=== PATIENT | female | born 1965 | race Caucasian/White ===

== ENCOUNTER → 2016-12-05 | Outpatient (CLI) | payer BC | LOC: MMGSC 16:50 | PROVIDERS: ATTEND Family Medicine | DX: N39.0 Urinary tract infection, site not specified (principal) | CPT/HCPCS: 87077; 87086; 87186 ==

== ENCOUNTER → 2017-03-07 | Outpatient (CLI) | payer BC | LOC: MMGSC 15:06 | PROVIDERS: ATTEND Family Medicine | DX: N39.0 Urinary tract infection, site not specified (principal) | CPT/HCPCS: 87086 ==

== ENCOUNTER → 2017-09-17 | Outpatient (CLI) | payer BC | END | disposition home or self-care (01) | LOC: MMGSC 14:37 | PROVIDERS: ATTEND Family Medicine | DX: N39.0 Urinary tract infection, site not specified (principal) | CPT/HCPCS: 87086 ==

== ENCOUNTER → 2017-10-04 | Outpatient (CLI) | payer BC ==
[2017-10-04 19:26] LABS: ALT 26 U/L (9-52); AST 27 U/L (14-36); Albumin 4.6 g/dL (3.5-5.0); Alkaline Phosphatase 52 U/L (38-126); Anion Gap 11 mmol/L; Blood Urea Nitrogen 8 mg/dL (7-17); Calcium 9.5 mg/dL (8.4-10.2); Carbon Dioxide 28 mmol/L (22-30); Chloride 102 mmol/L (98-107); Cholesterol 140 mg/dL (<200); Glucose 92 mg/dL (74-99); HDL Cholesterol 60 mg/dL (40-60); LDL Cholesterol,Calculated 69 mg/dL (0-99); Potassium 4.3 mmol/L (3.5-5.1); Sodium 141 mmol/L (137-145); Total Bilirubin 0.4 mg/dL (0.2-1.3); Total Protein 7.3 g/dL (6.3-8.2); Triglycerides 55 mg/dL (<150)
[2017-10-04 19:33] LABS: HCT 36.6 % (34.0-46.0); HGB 12.8 gm/dL (11.4-16.0); MCH 32.8 pg (25.0-35.0); MCV 93.8 fL (80.0-100.0); Platelet Count 134 k/uL (150-450); RDW 12.4 % (11.5-15.5); WBC 3.1 k/uL (3.8-10.6)
[2017-10-04 19:38] LABS: T4, Free (Free Thyroxine) 1.06 ng/dL (0.78-2.19)
[2017-10-04 20:46] LABS: Lymphocytes # (M) 1.24 k/uL (1.0-4.8); Monocytes # (M) 0.59 k/uL (0-1.0); Neutrophils # (M) 1.27 k/uL (1.3-7.7); Neutrophils % (M) 41 %; Nucleated Red Blood Cells 0 /100 WBC (0-0); Polychromasia Present; Total Cells Counted 100
== END | disposition home or self-care (01) ==
LOC: MMGSC 11:41
PROVIDERS: ATTEND Family Medicine
DX: Z00.00 Encounter for general adult medical examination without abnormal findings (principal)
CPT/HCPCS: 36415; 80053; 80061; 84439; 84443; 85025

== ENCOUNTER → 2022-04-27 | Outpatient (CLI) | payer BC ==
--- NOTE | 2022-04-27 16:43 | P.SLEEP ---
History of Present Illness DATE: 04/27/2022 CONSULTATION/NEW PATIENT EVALUATION HISTORY OF PRESENT ILLNESS/SLEEP-WAKE EVALUATION: 56year old lady had been evaluated in the sleep center for possible obstructive sleep apnea hypopnea syndrome. SLEEP SCHEDULE: Usually sleep schedule on weekdays from 9 PM to 5 AM, during days off from 9 PM to 7 AM. FALLING ASLEEP: No problems with falling asleep, no TV in bedroom. DURING SLEEP: Patient usually sleeps on the side and back position, with snoring and awakenings from sleep 3 times. Positive history of bradycardia during the sleep by Holter monitor. No history of hypnogogical hallucinations, sleep paralysis, or cataplexy. DURING THE DAY/WAKE STATE: Patient may feel sleepiness during the day. [place] sleepiness scale is. 7.. Patient take naps at 1 PM. 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 MEDICATIONS: Gabapentin 300 mg 4 times a day, pantoprazole 40 mg once a day, trazodone 25 mg once a day in the evening, Xanax 0.25 mg as needed, eyedrops. SOCIAL HISTORY: , Negative for smoking, alcohol consumption occasional. FAMILY HISTORY: Cancer, thyroid problems, diabetes. REVIEW OF SYSTEMS: Right-sided weakness, bradycardia, neck pain. No fevers. No double vision. No recent chest pain. No shortness of breath. No abdominal pain. No bleeding episodes. No blood in urine. No seizure episodes. PHYSICAL EXAMINATION: GENERAL: A pleasant patient without any distress. VITAL SIGNS: BP, 137/69 , HR , 42 , RR 16 , weight, 124.0 pounds, height 5 foot 5-1/3 inches, body mass index 20.4 . HEENT: PERRLA, EOMI. Evaluation of oropharynx showed tongue protrudes midline, low position of soft palate Mallampati 3. Retrognatia about 4 mm. Small symmetric mandibula. NECK: Supple. No JVD. Thyroid is not palpable. 12 from the half inches in circumference. LUNGS: Clear to percussion and to auscultation. Good air exchange. No wheezing or rhonchi. HEART: S1, S2 regular. No murmurs, gallops or rubs. ABDOMEN: Soft and nontender. Bowel sounds are present. No organomegaly appreciated. EXTREMITIES: No clubbing or cyanosis. CEMENT MIXER: Awake, alert, and oriented x3. Right-sided weakness. Patient walking with cane. ASSESSMENT: 1. Snoring, multiple awakenings from sleep, low position of soft palate Mallampati 3, retrognathia 4 mm, small assymmetric mandibula. Possible obstructive sleep apnea hypopnea syndrome. 2. Bradycardia during the sleep by Holter monitor. 3 . Degenerative disc disease. 4. , History of brain stem stroke at age of 38 with residual right-sided weakness. 5 . History of iron deficiency anemia. 6. , History of sinusitis problems. 7. , Acid reflux. 8. , Status post partial hysterectomy. 9. , Status post glomus tumor removed. 10. Vertigo episodes. 11.. Glaucoma. PLAN: 1. Polysomnography for evaluation of patient's breathing during sleep. 2. CPAP/BiPAP titration if sleep study confirms obstructive sleep apnea- hypopnea syndrome. 3. Preferable position during sleep on the side. 4. No driving if patient feels any sleepiness. Patient is aware of civil and criminal liability for unsafe driving. 5. Sleep hygiene with regular sleep time for at least 7.5-8 hours. Thank you very much for referring this patient for consultation. Sincerely, Josiah Cline MD, PhD, FAASM. Diplomat of [place] Board [employer] Medicine, Sleep Medicine Board by [place] [employer] Special[employer] [place] [employer] of [employer] Medicine [employer]ormitory Ma[employer] [facility] [place] Sleep Note - Sleep Note Sleep Note: Temperature: Pulse Rate: Respiratory Rate: Blood Pressure: SpO2: Height: Weight: BMI: Neck Circumference:
== END ==
LOC: SLEEP 15:22
PROVIDERS: ATTEND Internal Medicine
DX: R06.83 Snoring (principal); K21.9 Gastro-esophageal reflux disease without esophagitis; M26.19 Other specified anomalies of jaw-cranial base relationship; R00.1 Bradycardia, unspecified; D50.9 Iron deficiency anemia, unspecified; H40.9 Unspecified glaucoma; J32.9 Chronic sinusitis, unspecified; Z90.710 Acquired absence of both cervix and uterus; Z86.73 Personal history of transient ischemic attack (TIA), and cerebral infarction without residual deficits
CPT/HCPCS: 99211

== ENCOUNTER → 2024-07-30 | Outpatient (CLI) | payer OTHER ==
[2024-07-30 14:18] VITALS: BP 160/80; PULSE 94; RESP 16; TEMP 97.7
--- NOTE | 2024-07-30 14:49 | P.PROGSL ---
Subjective DATE: 07/30/2024 FOLLOW UP VISIT. 58-year-old lady have been followed in the sleep center. I saw patient in 2021, at that time she had polysomnogram which showed obstructive sleep apnea hypopnea syndrome in mild range with apnea hypopnea index 9.7. At that time because of insurance issues patient was not able to proceed with the treatment. Patient continued to snore, has multiple awakenings from sleep, may feel some tiredness during the day. [place] sleepiness scale is 6. MEDICATIONS: Please see below During physical exam: GENERAL: A pleasant patient without any distress. VITAL SIGNS: BP 160/80, weight 129 pounds, BMI 21.0, otherwise please see below. HEENT: CHILANGO HEIN. NECK: Supple. No JVD. LUNGS: Clear to percussion and to auscultation. Good air exchange. No wheezing or rhonchi. HEART: S1, S2 regular. ABDOMEN: Soft and nontender. EXTREMITIES: No clubbing or cyanosis. 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 Right-sided weakness. Impressions: 1. Snoring, awakenings from sleep, low position of soft with Mallampati 3, retrognathia. Obstructive sleep apnea hypopnea syndrome 2. History of brainstem stroke at the age of 38 with residual right-sided weakness. 3. Hypertension in the office. 4. Acid reflux. 5. Glaucoma. 6. 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 7. History of vertigo. 8. Status post tonsillectomy. 9. Status post hysterectomy. Plan: 1. Polysomnogram for evaluation of patient breathing during the sleep 2. Sleep hygiene with regular time in bed for at least 8 hours. 3. No driving if feeling sleepiness. Patient is aware about civil and criminal liability for unsafe driving. 4. Low-sodium diet, monitoring blood pressure. 5. Following plan after reading sleep study. Thank you very much for allowing me to participate in the management of your patient. Josiah Cline MD, PhD, FAASM. Diplomat of [place] [employer] Medicine, Sleep Medicine Board by [place] [employer] Medicine Airplane Pilot Supervisor [facility] [place] cc: Lucy Murdock MD Objective - Vital Signs Vital Signs: Vital Signs Temp 97.7 F 07/30/24 14:16 Pulse 94 07/30/24 14:16 Resp 16 07/30/24 14:16 BP 160/80 07/30/24 14:16 Pulse Ox 96 07/30/24 14:16 FiO2 Intake & Output 07/29/24 07/30/24 07/30/24 18:59 06:59 18:59 Weight 58.513 kg Home Medications: Home Medications Medication Instructions Recorded Confirmed Type ALPRAZolam [Xanax] 0.25 mg PO HS PRN 07/30/24 07/30/24 History Gabapentin 300 mg PO QID 07/30/24 07/30/24 History Latanoprost [Latanoprost 0.005%] See Rx Instructions .ROUTE .COMPLEX 07/30/24 07/30/24 History Pantoprazole [Protonix] 40 mg PO DAILY 07/30/24 07/30/24 History cycloSPORINE 0.05% OPHTH SOLN 1 applicator BOTH EYES Q12H 07/30/24 07/30/24 History [Restasis] traZODone HCL [Desyrel] 25 mg PO BID 07/30/24 07/30/24 History
== END ==
LOC: 3 N SLEEP 13:26
PROVIDERS: ATTEND Internal Medicine
DX: G47.33 Obstructive sleep apnea (adult) (pediatric) (principal); R06.83 Snoring; I10 Essential (primary) hypertension; K21.9 Gastro-esophageal reflux disease without esophagitis; H40.9 Unspecified glaucoma; Z86.018 Personal history of other benign neoplasm; Z86.69 Personal history of other diseases of the nervous system and sense organs; Z90.89 Acquired absence of other organs; Z86.73 Personal history of transient ischemic attack (TIA), and cerebral infarction without residual deficits
CPT/HCPCS: 99212

== ENCOUNTER 2024-09-08 19:38 | Outpatient (CLI) | payer OTHER ==
--- NOTE | 2024-09-10 18:23 | P.PCN ---
Description of Procedure: POLYSOMNOGRAPHY REPORT PROCEDURE(S)/DATE(S): Polysomnography 09/08/2024 CLINICAL: Patient has been seen in the sleep center for evaluation of obstructive sleep apnea-hypopnea syndrome. Please see my consultation. Sleep study has been done for evaluation of patient breathing during the sleep. PROCEDURE: The standard montage for clinical polysomnography included the electroencephalogram, the electrooculogram, the mentalis surface electromyography and Lead II cardiography. The respiratory battery consisted of measurements of nasal/buccal air flow, pressure transducer measurements from nose, thoracic and/or abdominal effort and intercostal surface electromyography. Video monitoring has been done to check for any parasomnia events. Nocturnal oxyhemoglobin saturations were obtained by finger oximetry. Step-de titration with positive airway pressure was utilized to control the respiratory events, if necessary. RESULTS: During the diagnostic sleep study sleep efficiency was short 61.7%. Latency to sleep onset was prolonged to 46.5 min. Sleep architecture showed sta ge NI was slightly short 4.9%, Delta sleep was normal at 12.1%, REM sleep was significantly short 9.0%. Respiratory channel showed 0 obstructive apneas, 0 mixed apneas, 1 central apneas, 103 hypopneas with lowest oxygen level 76%. Total apnea hypopnea index was 24.4. Heart rate was in the range between 55 and 65, average 59. EMG showed 0 periodic limb movements per hour with 0 micro-arousals per hour. IMPRESSIONS: 1. Moderate obstructive sleep apnea hypopnea syndrome. 2. No significant periodic limb movements have been documented. Please see other impressions from consultation PLAN: 1. The patient will have PAP titration for correction of respiratory abnormalities during the sleep. 2. Losing weight program. 3. Sleep hygiene with regular time in bed for at least 7-1/2 hours. 4. No driving if feeling sleepiness. Thank you very much for allowing me to participate in the management of your patient. Sincerely, Josiah Cline MD, PhD, FAASM. Diplomat of [place] Board [employer] Sleep Medicine, Sleep Medicine Board by [employer] Internal Medicine Stock Wetter [facility] [place] cc: Lucy Murdock MD
== END 2024-09-09 05:48 | disposition home or self-care (01) ==
LOC: 3 N SLEEP 19:38
PROVIDERS: ATTEND Internal Medicine
DX: G47.33 Obstructive sleep apnea (adult) (pediatric) (principal)
CPT/HCPCS: 95810

== ENCOUNTER 2024-12-16 19:42 | Outpatient (CLI) | payer OTHER ==
--- NOTE | 2024-12-18 10:41 | P.PCN ---
Description of Procedure: CLINICAL: Titration with positive air pressure has been done for correction of respiratory abnormalities during sleep. DESCRIPTION OF PROCEDURE: The standard montage for clinical polysomnography included the electroencephalogram, the electrocardiogram, the mentalis surface electromyography and Lead II cardiography. The respiratory battery consisted of measurements of nasal /buccal air flow, pressure transducer measurements from the nose, thoracic and /or abdominal effort and intercostal surface electromyography. Video monitoring has been done to check for any parasomnia events. Nocturnal oxyhemoglobin saturations were obtained by finger oximetry. Step-de titration with positive airway pressure was utilized to control respiratory events. Raw data of sleep recording has been reviewed and is adequate. RESULTS: Sleep efficiency was decreased to 75.2%. Latency to sleep onset was 31.0 minutes.]. Sleep architecture showed stage N1 was short 2.4%, Delta sleep while 11.1%, REM sleep was slightly increased to 31.8%. Heart rate was minimum 54 BPM, maximum 64 BPM, average 59 BPM. EMG showed 0 periodic limb movements per hour with 0 micriarousals per hour. PAP titration have been done with CPAP up to the pressure 11 cm H2O. Patient had problems with CPAP, switched to BPAP. BPAP was at 12/8 cm H2O. The best results were at the pressure BiPAP 12/8 cm H2O. Apnea hypopnea index reduced to 1.1. IMPRESSION: 1. Obstructive sleep apnea hypopnea syndrome mostly on controle with BPAP treatment. 2. No significant periodic limb movements have been documented. Please see other impressions from consultation. PLAN: 1. The patient will have treatment with positive air pressure equipment with the level of pressure BiPAP 12/8 cm H2O and should use it every night for the whole night. 2. Watching weight. 3. Sleep hygiene with regular time in bed for at least 8 hours. 4. No driving if feeling any sleepiness. 5. I will see the patient for follow up visit to explain the results of the test, recommendations, check compliance with treatment and make any necessary adjustment related to mask fitting, pressure and humidification. Thank you very much for allowing me to participate in the management of your patient. Sincerely, Josiah Cline MD, PhD, FAASM Diplomat of [place] [employer] Sleep Medicine Board of [place] Board of Internal Medicine [employer] [facility] [place] cc: Lucy Murdock MD
== END 2024-12-17 06:15 | disposition home or self-care (01) ==
LOC: 3 N SLEEP 19:42
PROVIDERS: ATTEND Internal Medicine
DX: G47.33 Obstructive sleep apnea (adult) (pediatric) (principal); Z99.89 Dependence on other enabling machines and devices
CPT/HCPCS: 95811

== ENCOUNTER → 2025-02-13 | Outpatient (CLI) | payer OTHER ==
--- NOTE | 2025-02-13 12:27 | P.PROGSL ---
Subjective DATE: 02/13/2025 FOLLOW UP VISIT. Patient with obstructive sleep apnea hypopnea syndrome return to sleep center for follow-up visit. Information from previous visit have been reviewed. This is first visit after patient received CPAP unit. Patient is using PAP equipment every night for the whole night, getting PAP supplies in time. Patient sleeps better after starting to use CPAP equipment The patient does not have significant problems with the mask, PAP unit and humidification. [place] sleepiness scale is 7, which is in normal range. I checked information from PAP unit. BPAP unit pressure 12/8 cm H2O. Usage is 100% for more then 4 hours, average 8.3 hours per night. Leak is 19 l/m, which is in acceptable range. Apnea Hypopnea Index is significantly increased to 18.9 which include 2.2 central events and 14.6 obstructive events. MEDICATIONS have been reviewed, please see below, no changes since July 2024. During physical exam: GENERAL: A pleasant patient without any distress. VITAL SIGNS: BP 143/93, HR 61, RR 12, weight 126.8 pounds, BMI 20, temperature 97.8, oxygen saturation room air 100%. HEENT: PERRLA, EOMI.low position of soft palate, Mallapati 3 . NECK: Supple. No JVD. LUNGS: Clear to percussion and to auscultation. Good air exchange. No wheezing or rhonchi. HEART: S1, S2 regular. ABDOMEN: Soft and nontender.[] EXTREMITIES: No clubbing or cyanosis. 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 Right-sided weakness. Impressions: 1. Obstructive sleep apnea-hypopnea syndrome. Patient demonstrated great comp liance with treatment, benefiting from treatment. Reading from BiPAP unit showed high apnea hypopnea index 2. History of brainstem stroke at the age of 38 with residual right-sided weakness. 3. Acid reflux. 4. Glaucoma. 5. History of glomus tumor in the right ear. 6. History of vertigo. 7. Status post tonsillectomy. 8. Status post hysterectomy. I adjusted parameters of BiPAP unit to auto BiPAP with maximal inspiratory pressure 16 and minimal expiratory pressure 8, with pressure support 4 cm of water. Plan: 1. Continue using PAP equipment every night for the whole night. 2. Sleep hygiene with regular time in bed for at least 7.5-8 hours 3. PAP unit should stay lower then position of the head. 4. Advised patient to remove all remaining water from humidifier canister daily and make it dry after each usage. Refill canister with fresh distilled water before each usage. 5. Watching weight. 6. Precautions related to driving. No driving if feel any sleepiness. 7. I will maintain prescription for PAP supplies including mask, tube, filters. 8. Follow up visit in 6 weeks or earlier if patient has any problems. Thank you very much for allowing me to participate in the management of your patient. Josiah Cline MD, PhD, FAASM. Diplomat of [place] [employer] of Sleep Medicine, Sleep Medicine Board by [place] [employer] Internal Medicine Copy Technician [facility] [place] Objective Home Medications: Home Medications Medication Instructions Recorded Confirmed Type ALPRAZolam [Xanax] 0.25 mg PO HS PRN 07/30/24 07/30/24 History Gabapentin 300 mg PO QID 07/30/24 07/30/24 History Latanoprost [Latanoprost 0.005%] See Rx Instructions .ROUTE .COMPLEX 07/30/24 07/30/24 History Pantoprazole [Protonix] 40 mg PO DAILY 07/30/24 07/30/24 History cycloSPORINE 0.05% OPHTH SOLN 1 applicator BOTH EYES Q12H 07/30/24 07/30/24 History [Restasis] traZODone HCL [Desyrel] 25 mg PO BID 07/30/24 07/30/24 History
== END ==
LOC: 3 N SLEEP 10:21
PROVIDERS: ATTEND Internal Medicine
CPT/HCPCS: 99212